=== PATIENT | female | born 1955 | race Two or more races ===

== ENCOUNTER → 2025-03-14 | Emergency (ER) | payer OTHER ==
[~2025-03-14] VITALS: Ht 157.5 cm; Wt 60.8 kg
[~2025-03-14] MED LIST: BISOPROLOL FUMA10 MG PO; DEXAMETHASONE SODIUM PHOSPHATE 4 MG/ML VIAL IM STA; DEXAMETHASONE SODIUM PHOSPHATE 4 MG/ML VIAL ONE; KETOROLAC TROMETHAMINE 30 MG VIAL IM STA; KETOROLAC TROMETHAMINE 30 MG VIAL ONE; ORPHENADRINE CITRATE 30 MG/ML AMPUL IM STA; ORPHENADRINE CITRATE 30 MG/ML AMPUL ONE; TRIJARDY XR 101 EACH PO
== END | disposition home or self-care (01) ==
LOC: ER 08:23
DX: G89.11 Acute pain due to trauma (principal); R51.9 Headache, unspecified; M54.2 Cervicalgia
CPT/HCPCS: 70450; 70490; 96372; 99284; J1100; J1885; J2360